=== PATIENT | male | born 1940 | race Caucasian/White ===

== ENCOUNTER 2021-10-03 20:07 | Emergency (ER) | payer MEDICAID, SELFPAY ==
--- NOTE | ~2021-10-03 | CT_ITS ---
EXAMINATION: CT HEAD WITHOUT CONTRAST CLINICAL INFORMATION: Left-sided weakness COMPARISON: None TECHNIQUE: Contiguous axial imaging was performed from the skull base to vertex without intravenous administration of contrast. This CT examination was performed using dose optimization techniques as appropriate, variously including the following: *Automated exposure control *Adjustment of mA and/or kV according to patient size (this includes techniques or standardized protocols for targeted exams where dose is matched to indication/reason for exam; i.e. extremities or head) *Use of iterative reconstruction technique DLP: 756 mGy-cm FINDINGS: Severe cortical and central atrophy. No hemorrhage. Moderate white matter changes consistent with small vessel ischemia. No acute infarct or any focal lesion noted. No hydrocephalus. No calvarial lesion. Paranasal sinuses clear. CT/CT head/brain wo con IMPRESSION: No acute intracranial pathology. No acute infarct or hemorrhage.
--- NOTE | ~2021-10-03 | XR_ITS ---
EXAMINATION: XR CHEST CLINICAL INFORMATION: Fever COMPARISON: None TECHNIQUE: Frontal view of the chest was obtained. FINDINGS: Mild streaky bibasilar opacities, likely mild subsegmental atelectasis. No definite airspace consolidation. No pleural effusion or pneumothorax. Normal cardiomediastinal silhouette and pulmonary vascularity. No evidence of pulmonary edema. No acute osseous injury. XR/XR chest 1V IMPRESSION: Streaky bibasilar opacities likely mild subsegmental atelectasis. No definite airspace consolidation or pleural effusions.
--- NOTE | 2021-10-03 20:16 | ECG_ITS ---
Test Reason : STROKE Blood Pressure : / mmHG Vent. Rate : 107 BPM Atrial Rate : 107 BPM P-R Int : 178 ms QRS Dur : 142 ms QT Int : 360 ms P-R-T Axes : 067 037 117 degrees QTc Int : 480 ms Sinus tachycardia Left bundle branch block Abnormal ECG No previous ECGs available Referred By: Preston Landry Electronically Signed By:ZULEYMA CAHUHAN
[2021-10-03 20:18] LABS: Glucose, Whole Blood 322 mg/dL (60-115)
--- NOTE | 2021-10-03 20:25 | ED.WEAKNESS ---
HPI - Weakness General Chief complaint: Stroke Stated complaint: STROKE ALERT Time Seen by Provider: 10/03/21 20:15 Source: family Mode of arrival: EMS History of Present Illness HPI Narrative: Patient 81 years old came by EMS from medical office for increased weakness since afternoon today patient does have some cold symptoms for 2 days went to the clinic and feeling very weak unable to ambulate because of weakness in both legs also complaining of slight nausea and cough on arrival patient febrile temperature of 101 degrees no other family member sick Related Data Allergies Allergy/AdvReac Type Severity Reaction Status Date / Time No Known Allergies Allergy Verified 10/03/21 20:15 Review of Systems Review of Systems: Yes all other systems are reviewed and are negative [facility] Social History Social History Advance Directives: No Advance Directives Information Provided: No Physical Exam Vital Signs: Vital Signs: Last Vital Signs Temp 98.9 F 10/03/21 23:05 Pulse 95 10/03/21 23:05 Resp 18 10/03/21 23:05 BP 152/74 H 10/03/21 23:05 Pulse Ox 98 10/03/21 23:05 O2 Del Method 10/03/21 23:05 BMI result Body Mass Index 24.3 Appearance: Alert. Oriented X3. No acute distress. Eyes: PERRLA, No Nystagmus ENT: Pharynx normal. Oral Mucosa moist Neck: Normal inspection. Neck supple. CVS: Normal heart rate and rhythm. Pulses normal. Respiratory: No respiratory distress. Equal air entry bilateral, no wheezing/rales/rhonchi Abdomen: Soft and nontender. Bowel sounds are present, no mass palpable, no CVA tenderness Skin: Skin warm and dry. Normal skin color. Normal skin turgor. Extremities: No lower extremity edema. No calf tenderness Neuro: Oriented X 3. No motor deficit. No sensory deficit.No cerebellar signs , cranial nerves II-XII intact NIH Stroke Scale Internal: Initial- Upon Arrival Level of Consciousness: Alert Level of Consciousness Questions: Answers both questions correctly Level of Consciousness Commands: Performs both tasks correctly Best Gaze: Normal Visual: No visual loss Facial Palsy: Normal Motor Arm (Right): No drift Motor Arm (Left): No drift Motor Leg (Right): No drift Motor Leg (Left): No drift Limb Ataxia: Absent Sensory: Normal Best Language: No aphasia Dysarthia: Normal Extinction and Inattention: No abnormality Score: 0 MDM - Weakness MDM Narrative Medical decision making narrative: Patient with COVID-19 infection as a cause of weakness slight Mor patient received [address] head negative no focal deficit discharge patient home patient saturating 98% at room air chest x-ray negative Lab Data Attestation: I reviewed the patient's lab results. Result diagrams: 10/03/21 21:32 10/03/21 21:31 Labs: Lab Results 10/03/21 10/03/21 10/03/21 Range/Units 20:14 21:10 21:31 WBC (4.8-10.8) X10*3/uL RBC (4.60-5.80) X10*6/uL Hgb (14.0-18.0) g/dl Hct (42.0-52.0) % MCV (80.0-98.0) fL MCH (27.0-33.0) pg MCHC (31.0-36.0) g/dl RDW (11.0-16.0) % Plt Count (160-400) X10*3/uL MPV (9.4-12.4) fL Immature Gran % (Auto) (0.0-0.4) % Neut % (Auto) (45-73) % Lymph % (Auto) (20-40) % [place] % (Auto) (2-11) % Eos % (Auto) (0-4) % Baso % (Auto) (0-2) % Lymph # (Auto) (1.2-4.9) X10*3/uL [place] # (Auto) (0.1-1.2) X10*3/uL Eos # (Auto) (0.0-0.4) X10*3/uL Baso # (Auto) (0.0-0.2) X10*3/uL Abs Immat Gran (auto) (0.00-0.03) X10*3/uL Absolute Neuts (auto) (2.0-8.3) x10*3/uL Absolute Nucleated RBC (0.0-0.012) X10*3/uL Nucleated RBC % (auto) (0.0-0.2) /100WBC PT (10.0-13.1) SEC INR (0.9-1.1) APTT (26.0-36.4) SEC Sodium 135 (135-145) mmol/L Potassium 5.1 (3.3-5.1) mmol/L Chloride 103 (96-108) mmol/L Carbon Dioxide 19 L (22-29) mmol/L Anion Gap 18 (12-20) BUN 18 H (9-16) mg/dL Creatinine 1.42 H (0.5-1.4) mg/dL Estim Creat Clear Calc 41.9 Estimated GFR 48 POC Glucose 322 H (60-115) mg/dL Random Glucose 321 H (60-115) mg/dL Lactic Acid (0.5-2.0) mmol/L Calcium 8.4 (8.4-10.2) mg/dL Total Bilirubin 0.7 (0.0-1.0) mg/dL AST 40 H (5-37) U/L ALT 41 H (0-40) U/L Alkaline Phosphatase 103 (39-117) U/L Troponin I High Sens (<3.5-35.0) ng/L Total Protein 7.7 (6.5-8.0) g/dL Albumin 4.2 (3.5-5.0) g/dL COVID-19 (AIDE) Positive A (Negative) COVID-19 Clin Com See Note 10/03/21 10/03/21 10/03/21 Range/Units 21:32 21:32 21:32 WBC 13.2 H (4.8-10.8) X10*3/uL RBC 5.04 (4.60-5.80) X10*6/uL Hgb 14.9 (14.0-18.0) g/dl Hct 42.6 (42.0-52.0) % MCV 84.5 (80.0-98.0) fL MCH 29.6 (27.0-33.0) pg MCHC 35.0 (31.0-36.0) g/dl RDW 12.8 (11.0-16.0) % Plt Count 219 (160-400) X10*3/uL MPV 9.6 (9.4-12.4) fL Immature Gran % (Auto) 0.5 H (0.0-0.4) % Neut % (Auto) 89.4 H (45-73) % Lymph % (Auto) 4.6 L (20-40) % [place] % (Auto) 5.2 (2-11) % Eos % (Auto) 0.0 (0-4) % Baso % (Auto) 0.3 (0-2) % Lymph # (Auto) 0.6 L (1.2-4.9) X10*3/uL [place] # (Auto) 0.7 (0.1-1.2) X10*3/uL Eos # (Auto) 0.0 (0.0-0.4) X10*3/uL Baso # (Auto) 0.0 (0.0-0.2) X10*3/uL Abs Immat Gran (auto) 0.06 H (0.00-0.03) X10*3/uL Absolute Neuts (auto) 11.8 H (2.0-8.3) x10*3/uL Absolute Nucleated RBC 0.000 (0.0-0.012) X10*3/uL Nucleated RBC % (auto) 0.0 (0.0-0.2) /100WBC PT 11.6 (10.0-13.1) SEC INR 1.0 (0.9-1.1) APTT 32.6 (26.0-36.4) SEC Sodium (135-145) mmol/L Potassium (3.3-5.1) mmol/L Chloride (96-108) mmol/L Carbon Dioxide (22-29) mmol/L Anion Gap (12-20) BUN (9-16) mg/dL Creatinine (0.5-1.4) mg/dL Estim Creat Clear Calc Estimated GFR POC Glucose (60-115) mg/dL Random Glucose (60-115) mg/dL Lactic Acid (0.5-2.0) mmol/L Calcium (8.4-10.2) mg/dL Total Bilirubin (0.0-1.0) mg/dL AST (5-37) U/L ALT (0-40) U/L Alkaline Phosphatase (39-117) U/L Troponin I High Sens 15.7 (<3.5-35.0) ng/L Total Protein (6.5-8.0) g/dL Albumin (3.5-5.0) g/dL COVID-19 (AIDE) (Negative) COVID-19 Clin Com 10/03/21 Range/Units 21:34 WBC (4.8-10.8) X10*3/uL RBC (4.60-5.80) X10*6/uL Hgb (14.0-18.0) g/dl Hct (42.0-52.0) % MCV (80.0-98.0) fL MCH (27.0-33.0) pg MCHC (31.0-36.0) g/dl RDW (11.0-16.0) % Plt Count (160-400) X10*3/uL MPV (9.4-12.4) fL Immature Gran % (Auto) (0.0-0.4) % Neut % (Auto) (45-73) % Lymph % (Auto) (20-40) % [place] % (Auto) (2-11) % Eos % (Auto) (0-4) % Baso % (Auto) (0-2) % Lymph # (Auto) (1.2-4.9) X10*3/uL [place] # (Auto) (0.1-1.2) X10*3/uL Eos # (Auto) (0.0-0.4) X10*3/uL Baso # (Auto) (0.0-0.2) X10*3/uL Abs Immat Gran (auto) (0.00-0.03) X10*3/uL Absolute Neuts (auto) (2.0-8.3) x10*3/uL Absolute Nucleated RBC (0.0-0.012) X10*3/uL Nucleated RBC % (auto) (0.0-0.2) /100WBC PT (10.0-13.1) SEC INR (0.9-1.1) APTT (26.0-36.4) SEC Sodium (135-145) mmol/L Potassium (3.3-5.1) mmol/L Chloride (96-108) mmol/L Carbon Dioxide (22-29) mmol/L Anion Gap (12-20) BUN (9-16) mg/dL Creatinine (0.5-1.4) mg/dL Estim Creat Clear Calc Estimated GFR POC Glucose (60-115) mg/dL Random Glucose (60-115) mg/dL Lactic Acid 2.1 H* (0.5-2.0) mmol/L Calcium (8.4-10.2) mg/dL Total Bilirubin (0.0-1.0) mg/dL AST (5-37) U/L ALT (0-40) U/L Alkaline Phosphatase (39-117) U/L Troponin I High Sens (<3.5-35.0) ng/L Total Protein (6.5-8.0) g/dL Albumin (3.5-5.0) g/dL COVID-19 (AIDE) (Negative) COVID-19 Clin Com ECG Data Attestation: I personally reviewed and interpreted this ECG as follows: Interpretation: Sinus tachycardia heart rate of 107 beats per minute left bundle branch block no acute ST wave changes no acute skin Critical Care Time Critical Care Time Critical Care Time: Yes Total Critical Care Time: 35 Attestation: I spent 35 minutes of critical care, with interventions, assessments, speaking to patient, consultants, and family. Discharge Plan Discharge Clinical Impression: COVID-19, Weakness, Acute dehydration Patient Disposition: Home, Self-Care Instructions: Weakness (ED), COVID-19 (Coronavirus Disease 2019) (ED) Additional Instructions: Drink plenty of fluids Social distancing as advised You are slightly dehydrated recheck your kidney functions in your PCP office in 2-3 days
[2021-10-03 20:33] VITALS: PULSE 106; RESP 22; O2SAT 93; BMI 24.3
[2021-10-03 21:08] VITALS: TEMP 38.8
[2021-10-03] MEDS: Acetaminophen 325 MG TABLET 650 MG PO (21:12)
[2021-10-03] MEDS: 0.9 % Sodium Chloride 1,000 ML 999 ML IV ×2 (21:13)
[2021-10-03 21:39] VITALS: BP 175/90; PULSE 105; RESP 20; TEMP 37.3
[2021-10-03 21:39] LABS: Basophils Percent Auto 0.3 % (0-2); Hematocrit 42.6 % (42.0-52.0); Hemoglobin 14.9 g/dl (14.0-18.0); Imm Gran Abs Auto 0.06 X10*3/uL (0.00-0.03); Imm Gran Pct Auto 0.5 % (0.0-0.4); Lymphocytes Absolute Auto 0.6 X10*3/uL (1.2-4.9); Lymphocytes Percent Auto 4.6 % (20-40); MANUAL DIFF FLAG NO; Mean Corpuscular Hemoglobin 29.6 pg (27.0-33.0); Mean Corpuscular Volume 84.5 fL (80.0-98.0); Mean Platelet Volume 9.6 fL (9.4-12.4); Monocytes Absolute Auto 0.7 X10*3/uL (0.1-1.2); Monocytes Percent Auto 5.2 % (2-11); Neutrophils Absolute Auto 11.8 x10*3/uL (2.0-8.3); Neutrophils Percent Auto 89.4 % (45-73); Platelet Count 219 X10*3/uL (160-400); Red Blood Count 5.04 X10*6/uL (4.60-5.80); Red Cell Distribution Width 12.8 % (11.0-16.0); White Blood Count 13.2 X10*3/uL (4.8-10.8)
[2021-10-03 21:45] LABS: Prothrombin Time 11.6 SEC (10.0-13.1)
[2021-10-03 21:47] LABS: Partial Thromboplastin Time 32.6 SEC (26.0-36.4)
[2021-10-03 21:59] LABS: Alanine Aminotransferase 41 U/L (0-40); Albumin Level 4.2 g/dL (3.5-5.0); Alkaline Phosphatase 103 U/L (39-117); Anion Gap 18 (12-20); Aspartate Amino Transferase 40 U/L (5-37); Bilirubin Total 0.7 mg/dL (0.0-1.0); Blood Urea Nitrogen 18 mg/dL (9-16); Calcium 8.4 mg/dL (8.4-10.2); Carbon Dioxide 19 mmol/L (22-29); Chloride 103 mmol/L (96-108); Creatinine Clr Calc Pharmacy 41.9; Estimated Glomerular Filt Rate 48; Glucose Random 321 mg/dL (60-115); Potassium 5.1 mmol/L (3.3-5.1); Sodium 135 mmol/L (135-145); Total Protein 7.7 g/dL (6.5-8.0)
[2021-10-03 22:03] LABS: Troponin-I High Sensitivity 15.7 ng/L (<3.5-35.0)
[2021-10-03 22:10] LABS: Lactic Acid 2.1 mmol/L (0.5-2.0)
[2021-10-03 22:11] LABS: COVID-19 Test Positive (Negative)
[2021-10-03] MEDS: ondansetron HCL 4 MG/2 ML VIAL IVPUSH (22:13)
--- NOTE | 2021-10-03 22:23 | PC.NURSE ---
Pt. DANIELA by EMS. This nurse didn't receive report from EMS as they gave info directly to doc and this comic book writer was with another patient. EMS called in pt. as a stroke alert pt. Info obtained from pt's daughter. Pt. was coughing with nausea and was febrile. Pt. experienced weakness upon standing. Pt. continues to experience nausea. Medicated with Zofran per the APR.
[2021-10-03 23:05] VITALS: BP 152/74; PULSE 95; RESP 18; TEMP 37.2; O2SAT 98
--- NOTE | 2021-10-03 23:06 | PC.NURSE ---
PATIENT WAS CHANGE INTO HOSPITAL ATTIRE .
[2021-10-03 23:43] LABS: Reflex Lactate? Lactic Acid Added
== END 2021-10-04 00:06 | disposition home or self-care (01) ==
PROVIDERS: Emergency Provider Internal Medicine
DX: U07.1 COVID-19 (principal); R00.0 Tachycardia, unspecified; E86.0 Dehydration; R53.1 Weakness; Z79.899 Other long term (current) drug therapy
CPT/HCPCS: 36415; 70450; 71045; 80053; 82947; 83605; 84484; 85025; 85610; 85730; 87040; 87635; 93005; 96374; 99284; J2405

== ENCOUNTER 2022-11-01 20:27 | Emergency (ER) | payer MEDICAID, OTHER, SELFPAY ==
--- NOTE | ~2022-11-01 | CT_ITS ---
Indication: Neck pain, status post fall, dizziness EXAMINATION: CT of the brain and CT cervical spine. Comparison previous dated 10/03/2021. Axial imaging with coronal and sagittal reformatted images. This CT examination was performed using dose optimization techniques as appropriate, variously including the following: *Automated exposure control *Adjustment of mA and/or kV according to patient size (this includes techniques or standardized protocols for targeted exams where dose is matched to indication/reason for exam; i.e. extremities or head) *Use of iterative reconstruction technique. Radiation dose [address] brain; There is no midline shift. There is no mass effect. There is no hemorrhage. The basal cisterns appear patent. The posterior fossa is grossly within normal limits. There is no extra-axial collection. Note is made of atrophy and white matter ischemic changes. No evidence for fracture on the bone windows. Cervical spine; Reversal of the normal lordosis. [place] at C6. No fracture or dislocation is seen. Note is made of a large central thyroid nodule. 3.[address]/CT cervical spine wo IV con IMPRESSION: Negative acute noncontrast CT the brain. There is atrophy and white matter ischemic change. Reversal of the normal cervical lordosis in the cervical spine could be due to position or spasm. There is degenerative change. No fracture or dislocation. Large dominant nodule in the thyroid gland. Recommend ultrasound
--- NOTE | ~2022-11-01 | XR_ITS ---
EXAMINATION: XR LUMBOSACRAL SPINE CLINICAL INFORMATION: Back pain, fall. COMPARISON: None available. TECHNIQUE: Three views of the lumbosacral spine. FINDINGS: Mild left apical curvature of the upper lumbar spine. Age indeterminate compression deformity at L1 with approximately 60% of anterior vertebral body height loss. No evidence of traumatic subluxation. Moderate multilevel spondylosis leading to various degrees of neural foraminal encroachment, more noticeable in the lower lumbar spine. SI joints are symmetric. No significant paraspinal soft tissue abnormality. XR/XR lumbar spine 2-3V IMPRESSION: 1. Age indeterminate L1 compression deformity with approximately 60% of anterior vertebral body height loss. Correlate for point tenderness. Further evaluation with MRI could be obtained if clinically deemed appropriate. 2. Moderate multilevel lumbar spondylosis.
--- NOTE | ~2022-11-01 | CT_ITS ---
Indication: Neck pain, status post fall, dizziness EXAMINATION: CT of the brain and CT cervical spine. Comparison previous dated 10/03/2021. Axial imaging with coronal and sagittal reformatted images. This CT examination was performed using dose optimization techniques as appropriate, variously including the following: *Automated exposure control *Adjustment of mA and/or kV according to patient size (this includes techniques or standardized protocols for targeted exams where dose is matched to indication/reason for exam; i.e. extremities or head) *Use of iterative reconstruction technique. Radiation dose [address] brain; There is no midline shift. There is no mass effect. There is no hemorrhage. The basal cisterns appear patent. The posterior fossa is grossly within normal limits. There is no extra-axial collection. Note is made of atrophy and white matter ischemic changes. No evidence for fracture on the bone windows. Cervical spine; Reversal of the normal lordosis. [place] at C6. No fracture or dislocation is seen. Note is made of a large central thyroid nodule. 3.[address]/CT head/brain wo IV con IMPRESSION: Negative acute noncontrast CT the brain. There is atrophy and white matter ischemic change. Reversal of the normal cervical lordosis in the cervical spine could be due to position or spasm. There is degenerative change. No fracture or dislocation. Large dominant nodule in the thyroid gland. Recommend ultrasound
[2022-11-01 20:51] VITALS: BP 162/78; PULSE 93; RESP 18; TEMP 37.1; O2SAT 95; BMI 25.1
--- NOTE | 2022-11-01 20:52 | ED_ITS ---
HPI - General Adult General Chief complaint: Fall Stated complaint: Fell hurt back Time Seen by Provider: 11/01/22 22:40 Source: patient and family Mode of arrival: ambulatory Limitations: no limitations History of Present Illness HPI narrative: earlier patient was eating sitting at a table food up all of sudden felt dizzy and fell backwards hitting his head to the ground complaining of pain in the neck no other injury No loss of consciousness patient with history of dementia no loss of consciousness no seizures patient otherwise is at baseline Related Data Allergies Allergy/AdvReac Type Severity Reaction Status Date / Time No Known Allergies Allergy Verified 11/01/22 20:56 [facility] Social History Social History Alcohol intake: former Smoked in Last 30 Days: No Use of substances other than those prescribed or required for medical reasons: No Advance Directives: No Advance Directives Information Provided: Yes Physical Exam ED Vital Signs: Vital Signs - 24 hr 11/01/22 20:51 11/01/22 23:38 11/01/22 23:39 Temperature 98.8 F Pulse Rate 93 75 81 Respiratory Rate 18 Blood Pressure 162/78 H 154/87 H 160/81 H Pulse Oximetry 95 Oxygen Delivery Method Room Air 11/01/22 23:41 11/02/22 00:04 Temperature 98.2 F Pulse Rate 82 75 Respiratory Rate 18 Blood Pressure 160/77 H 159/83 H Pulse Oximetry 93 Oxygen Delivery Method Room Air BMI result Body Mass Index 25.1 Appearance: Alert. Oriented X3. No acute distress. Eyes: PERRLA, No Nystagmus ENT: Pharynx normal. Oral Mucosa moist Neck: Normal inspection. Neck supple. CVS: Normal heart rate and rhythm. Pulses normal. Respiratory: No respiratory distress. Equal air entry bilateral, no wheezing/rales/rhonchi Abdomen: Soft and nontender. Bowel sounds are present, no mass palpable, no CVA tenderness Skin: Skin warm and dry. Normal skin color. Normal skin turgor. Extremities: No lower extremity edema. No calf tenderness Neuro: Oriented X 3. No motor deficit. No sensory deficit.No cerebellar signs , cranial nerves II-XII intact Course Course Course Narrative: This is an RME: Additional HPI, ROS, PE not included below will be deferred to primary provider. 82 y o male presenting for evaluation of lower back pain s/p ground level unwitnessed fall earlier today. Negative thinners, negative HS, negative LOC. States he was dizzy prior to the fall, fell onto his bottom. Plan: Labs, imaging Medical Decision Making Medical Decision Making [facility] Narrative: Patient s/p mechanical fall normal vitals ambulatory in the ER will discharge the patient home Lab Data [facility] Lab Attestation statement: I reviewed the patient's lab results. 11/01/22 21:25 11/01/22 21:25 Labs: Lab Results 11/01/22 Range/Units 21:25 WBC 14.0 H (4.8-10.8) X10*3/uL RBC 4.92 (4.60-5.80) X10*6/uL Hgb 14.8 (14.0-18.0) g/dl Hct 42.9 (42.0-52.0) % MCV 87.2 (80.0-98.0) fL MCH 30.1 (27.0-33.0) pg MCHC 34.5 (31.0-36.0) g/dl RDW 13.1 (11.0-16.0) % Plt Count 213 (160-400) X10*3/uL MPV 9.6 (9.4-12.4) fL Immature Gran % (Auto) 0.7 H (0.0-0.4) % Neut % (Auto) 85.8 H (45-73) % Lymph % (Auto) 9.0 L (20-40) % [place] % (Auto) 3.9 (2-11) % Eos % (Auto) 0.3 (0-4) % Baso % (Auto) 0.3 (0-2) % Lymph # (Auto) 1.3 (1.2-4.9) X10*3/uL [place] # (Auto) 0.6 (0.1-1.2) X10*3/uL Eos # (Auto) 0.0 (0.0-0.4) X10*3/uL Baso # (Auto) 0.0 (0.0-0.2) X10*3/uL Abs Immat Gran (auto) 0.10 H (0.00-0.03) X10*3/uL Absolute Neuts (auto) 12.0 H (2.0-8.3) x10*3/uL Absolute Nucleated RBC 0.000 (0.0-0.012) X10*3/uL Nucleated RBC % (auto) 0.0 (0.0-0.2) /100WBC Sodium 136 (135-145) mmol/L Potassium 4.4 (3.3-5.1) mmol/L Chloride 103 (96-108) mmol/L Carbon Dioxide 20 L (22-29) mmol/L Anion Gap 17 (12-20) BUN 14 (9-16) mg/dL Creatinine 1.07 (0.5-1.4) mg/dL Estim Creat Clear Calc 48.0 Estimated GFR > 60 Random Glucose 268 H (60-115) mg/dL Calcium 9.3 D (8.4-10.2) mg/dL Total Bilirubin 0.5 (0.0-1.0) mg/dL AST 24 (5-37) U/L ALT 27 (0-40) U/L Alkaline Phosphatase 87 (39-117) U/L Troponin I High Sens 4.2 (<3.5-35.0) ng/L Total Protein 7.9 (6.5-8.0) g/dL Albumin 4.6 (3.5-5.0) g/dL Independent Interpretation I performed an independent interpretation of an: EKG Interpretation: No sinus rhythm with heart rate of 90 beats per minute left bundle-branch block no acute ST changes no acute ischemia Discharge Plan Discharge Clinical Impression: Fall Patient Disposition: Home, Self-Care Instructions: Fall Prevention for Older Adults (ED) Additional Instructions: Care and cautions as advised
--- NOTE | 2022-11-01 20:56 | ECG_ITS ---
Test Reason : FALL Blood Pressure : / mmHG Vent. Rate : 090 BPM Atrial Rate : 090 BPM P-R Int : 180 ms QRS Dur : 144 ms QT Int : 396 ms P-R-T Axes : 037 014 125 degrees QTc Int : 484 ms Normal sinus rhythm Left bundle branch block Abnormal ECG When compared with ECG of 03-OCT-2021 20:58, No significant change was found Referred By: Todd Leon Electronically Signed By:ZULEYMA CHAUHAN
[2022-11-01 21:30] LABS: MANUAL DIFF FLAG NO
[2022-11-01 21:31] LABS: Basophils Percent Auto 0.3 % (0-2); Eosinophils Percent Auto 0.3 % (0-4); Hematocrit 42.9 % (42.0-52.0); Hemoglobin 14.8 g/dl (14.0-18.0); Imm Gran Pct Auto 0.7 % (0.0-0.4); Lymphocytes Absolute Auto 1.3 X10*3/uL (1.2-4.9); Mean Corpuscular HGB Conc 34.5 g/dl (31.0-36.0); Mean Corpuscular Hemoglobin 30.1 pg (27.0-33.0); Mean Corpuscular Volume 87.2 fL (80.0-98.0); Mean Platelet Volume 9.6 fL (9.4-12.4); Monocytes Absolute Auto 0.6 X10*3/uL (0.1-1.2); Monocytes Percent Auto 3.9 % (2-11); Neutrophils Percent Auto 85.8 % (45-73); Platelet Count 213 X10*3/uL (160-400); Red Blood Count 4.92 X10*6/uL (4.60-5.80); Red Cell Distribution Width 13.1 % (11.0-16.0)
[2022-11-01 21:44] LABS: Alanine Aminotransferase 27 U/L (0-40); Albumin Level 4.6 g/dL (3.5-5.0); Alkaline Phosphatase 87 U/L (39-117); Anion Gap 17 (12-20); Aspartate Amino Transferase 24 U/L (5-37); Bilirubin Total 0.5 mg/dL (0.0-1.0); Blood Urea Nitrogen 14 mg/dL (9-16); Calcium 9.3 mg/dL (8.4-10.2); Carbon Dioxide 20 mmol/L (22-29); Chloride 103 mmol/L (96-108); Estimated Glomerular Filt Rate > 60; Glucose Random 268 mg/dL (60-115); Potassium 4.4 mmol/L (3.3-5.1); Sodium 136 mmol/L (135-145); Total Protein 7.9 g/dL (6.5-8.0)
[2022-11-01 21:50] LABS: Troponin-I High Sensitivity 4.2 ng/L (<3.5-35.0)
[2022-11-01 23:38] VITALS: BP 154/87; PULSE 75
[2022-11-01 23:39] VITALS: BP 160/81; PULSE 81
[2022-11-01 23:41] VITALS: BP 160/77; PULSE 82
[2022-11-02 00:04] VITALS: BP 159/83; PULSE 75; RESP 18; TEMP 36.8; O2SAT 93
[2022-11-02 00:42] LABS: Appearance Urine Clear; Color Urine Yellow; Glucose Urine UA 100 mg/dL (Negative); Leukocyte Esterase Urine Negative (Negative); Nitrite Urine Negative (Negative); Urine Blood Negative (Negative); Urine Ketones Negative (Negative); Urine Protein Negative (Neg-Trace)
== END 2022-11-02 00:41 | disposition home or self-care (01) ==
PROVIDERS: Physician Assistant; Emergency Provider Internal Medicine
DX: R42 Dizziness and giddiness (principal); R51.9 Headache, unspecified; M54.2 Cervicalgia; R94.31 Abnormal electrocardiogram [ECG] [EKG]; M54.50 Low back pain, unspecified; Z79.899 Other long term (current) drug therapy
CPT/HCPCS: 36415; 70450; 72100; 72125; 80053; 81003; 84484; 85025; 93005; 99284; 99285

== ENCOUNTER 2024-01-05 09:41 | Outpatient (REF) | payer MEDICAID, OTHER, SELFPAY ==
[2024-01-05 11:37] LABS: Hematocrit 40.8 % (42.0-52.0); Hemoglobin 14.2 g/dl (14.0-18.0)
[2024-01-05 12:01] LABS: Anion Gap 13 (12-20); Blood Urea Nitrogen 11 mg/dL (9-16); Calcium 9.4 mg/dL (8.4-10.2); Carbon Dioxide 26 mmol/L (22-29); Chloride 101 mmol/L (96-108); Cholesterol 105 mg/dL (<200); Estimated Glomerular Filt Rate > 60; Glucose Random 206 mg/dL (60-115); HDL Cholesterol 30 mg/dL (>40); LDL Cholesterol Calculated 36 mg/dL (<100); Potassium 4.2 mmol/L (3.3-5.1); Sodium 136 mmol/L (135-145); Triglycerides 195 mg/dL (<150)
[2024-01-05 12:12] LABS: Creatinine Urine 69.47 mg/dL; Microalbum/Creatinine Ratio Ur 11.5 ug/mg cr (<30)
[2024-01-05 13:08] LABS: Free T4 (Free Thyroxine) 1.16 ng/dL (0.71-1.85)
== END 2024-01-05 09:42 | disposition home or self-care (01) ==
LOC: HO.HHCL 09:41
PROVIDERS: Visit Provider Nurse Practitioner Primary Care
DX: G30.9 Alzheimer's disease, unspecified (principal); F02.80 Dementia in other diseases classified elsewhere, unspecified severity, without behavioral disturbance, psychotic disturbance, mood disturbance, and anxiety; E03.8 Other specified hypothyroidism; E78.5 Hyperlipidemia, unspecified; E11.69 Type 2 diabetes mellitus with other specified complication
CPT/HCPCS: 36415; 80048; 80061; 82043; 82570; 84439; 84443; 85014; 85018

== ENCOUNTER 2024-03-15 10:57 | Outpatient (REF) | payer MEDICAID, OTHER, SELFPAY ==
--- OUTSIDE RECORDS SUMMARY | 2024-03-15 12:09 | XMS_ITS | Encounter Summary ---
Author Organization [employer] Address [address] [place] [address] Care Team Providers Care Inside Outside Sales Representative Name Role Phone Marisa Chowdhury Primary Care Provider [phone] Tamiko Licona Primary Care Provider [phone] Encounter Details Date Type Department Care Team (Late st Contact Info) Description 2022 Orders Only [facility]S [address] [place], [place] [id number] Suzy Baez LPN Social History Tobacco Use Types Packs/Day Years Used Date Smoking Tobacco: Never Assessed Sex and Gender Information Value Date Recorded Sex Assigned at Male 12/10/2021 10:40 AM EDT Legal Sex Male 10:40 AM EDT Gender Identity Male 12/10/2021 10:40 AM EDT Sexual Orientation Straight 12/10/2021 10 :40 AM EDT documented as of this encounter Plan of Treatment Upcoming Encounters Date Type Department Care Team (Late st Contact Info) Description 03/25/2024 10:00 AM EST Office Visit [facility] MEDICINE [address] [place] [address] Tamiko Licona ANP [address] [place] [address] documented as of this encounter Visit Diagnoses Not on filedocumented in this encounter Care Teams Inside Outside Sales Representative Relationship Specialty Start Date End Date Marisa Chowdhury FNP PCP - General Family Medicine 04/19/22 08/25/22 Tamiko Licona ANP [address] [place] [address] PCP - General Family Medicine 04/03/23 documented as of this encounter
--- OUTSIDE RECORDS SUMMARY | 2024-03-15 12:09 | XMS_ITS | Encounter Summary ---
Author Organization [email or web address] Address [address] [facility] 7t [place] [address] Care Team Providers Care Mine Engineering Superintendent Name Role Phone Tamiko Licona Primary Care Provider [phone] Encounter Details Date Type Department Care Team (Late st Contact Info) Description 07/03/2023 Telephone [facility] [address] [place], [place] [phone] Tamiko Licona ANP [address] [place], [place] [phone] Social History Tobacco Use Types Packs/Day Years Used Date Smoking Tobacco: Never Smokeless Tobacco: Former Chew Comments:Quit when family br ought to [place] from [facility] Alcohol Use Standard Drinks/Week Comments Not Currently 0 (1 standard drink = 0.6 oz pur e alcohol) Alcohol Answer Date Recorded Frequency of Alcohol Consumption Not on file 04/15/2023 Average Number of Drinks Not on file 024 Frequency of Binge Drinking Not on file 06/2023 Score 0 04/15/2023 Depression Answer Date Recorded Patient Health Questionnaire-9 Score 0 04/15/2023 Patient Health Questionnaire-9 Score 0 04/15/2023 Last PHQ-9: Questionnaire Data Not on file 0 04/15/2023 Housing Stability Answer Date Recorded What is your housing situation today? I have tank romano 04/07/[address] you li ve. Do you have problems with any of the following? None of the above 04/07/2023 Food Insecurity Answer Date Recorded Within the past 12 months, y ou worried that your food would run out before you got money to buy more: Never True 04/07/2023 Within the past 12 months,th e food you bought just didn't last and you didn't have enough money to get more: Never True Transportation Answer Date Recorded In the past 12 months, has l ack of transportation kept you from medical appts, meetings, work or from getting things needed for daily living? No 04/07/2023 Utilities Answer Date Recorded In the past 12 months, has t he electric, gas, oil or water company threatened to shut off services in your home? No 04/07/2023 Depression Answer Date Recorded Patient Health Questionnaire-2 Score 0 04/15/2023 Sex and Gender Information Value Date Recorded Sex Assigned at Male 12/10/2021 10:40 AM EDT Legal Sex Male 10:40 AM EDT Gender Identity Male 12/10/2021 10:40 AM EDT Sexual Orientation Straight 12/10/2021 10 :40 AM EDT documented as of this encounter Plan of Treatment Upcoming Encounters Date Type Department Care Team (Late st Contact Info) Description 03/25/2024 10:00 AM EST Office Visit [facility] [address] [place] [phone] Tamiko Licona ANP [address] [place] [address] documented as of this encounter Goals Goal Patient Goal Type Associated Problems Recent Progress Patient-Stated? Author Blood Pressure < 140/90 Blood Pressure 134/71( 024 9:33 AM EDT) No Mónica Real, PharmD documented as of this encounter Visit Diagnoses Not on filedocumented in this encounter Additional Health Concerns Assessment Noted Time PHQ-9 Depression Total Score: 0 04/15/19 10:49 AM EST documented as of this encounter Care Teams Mine Engineering Superintendent Relationship Specialty Start Date End Date Tamiko Licona ANP [address] [place] [phone] PCP - General Family Medicine 04/03/23 documented as of this encounter
--- OUTSIDE RECORDS SUMMARY | 2024-03-15 12:09 | XMS_ITS | Referral Summary ---
Author Organization [facility] Address [address] [place] [address] Care Team Providers Care Hotel Administrative Assistant Name Role Phone Tamiko Licona Primary Care Provider [phone] Encounters Date Type Department Care Team Description 01/02/2024 Refill [facility] [address] [place] [phone] Yeni Carrillo MD 12/17/2023 Orders Only [facility] [address] [place] [phone] Yeni Carrillo MD from Last 3 Months Allergies No known active allergies Medications amLODIPine (NORVASC) 5 mg tablet 5 mg. Active atorvastatin (LIPITOR) 20 mg tablet 20 mg. Active Januvia 100 mg tablet 100 mg once a day. Active metFORMIN (GLUCOPHAGE) 1,000 mg tablet 1,000 mg. Acti ve olmesartan (BENICAR) 20 mg tablet 20 mg once a day. Active omega-3 acid ethyl esters (LOVAZA) 1 gram capsule 1 g. Active Vitamin D3 25 mcg (1,000 unit) capsule 1,000 Units. Active traZODone (DESYREL) 50 mg tablet Take 1 tablet (50 mg total) by mouth at bed time. at bedtime. 90 tablet 01/05/2024 Active Active Problems No known active problems Social History Tobacco Use Types Packs/Day Years Used Date Smoking Tobacco: Former Cigarettes Q uit: 2020 Smokeless Tobacco: Never Tobacco Cessation:Counseling Given: Not Answered Alcohol Use Standard Drinks/Week Comments Never 0 (1 standard drink = 0.6 oz pur e alcohol) Sex and Gender Information Value Date Recorded Sex Assigned at Male 12/09/2023 11:45 AM EDT Legal Sex Male 2:21 PM EDT Gender Identity Not on file Sexual Orientation Not on file Last Filed Vital Signs Vital Sign Reading Time Taken Comments Blood Pressure 104/64 01/20/2023 12:58 PM EST Pulse 72 01/20/2023 12:58 PM EST Temperature 36.3 ??C (97.3 ??F) 01/20/2023 12:[address] Respiratory Rate 16 01/20/2023 12:58 PM EST Oxygen Saturation - - Inhaled Oxygen Concentration - - Weight 69 kg (152 lb 1.9 oz) 01/20/2023 12:58 PM EST Height 175.3 cm (5' 9 ) 01/20/2023 12:58 PM EST Body Mass Index 22.46 01/20/2023 12:58 PM EST Plan of Treatment Upcoming Encounters Date Type Department Care Team (Late st Contact Info) Description 11/26/2024 11:00 AM EDT Follow-Up [facility] [address] [place] [phone] Yeni Carrillo MD [address] [place] [phone] [facility] Care Teams Hotel Administrative Assistant Relationship Specialty Start Date End Date Tamiko Licona [address] [place] [phone] PCP - General 12/09/23
--- OUTSIDE RECORDS SUMMARY | 2024-03-15 12:09 | XMS_ITS | Clinical Summary ---
Author Organization [facility] Address [address] [place] [address] Care Team Providers Care Spring Bender Name Role Phone Tamiko Licona Primary Care Provider [phone] Allergies No known active allergies Medications amLODIPine [...] bed time. at bedtime. 90 tablet 01/05/2024 5 Active Active Problems No known active problems Encounters Date Type Department Care Team Description 01/02/2024 Refill [facility] [address] [place] [phone] Yeni Carrillo MD 12/17/2023 Orders Only [facility] [address] [place] [address] Yeni Carrillo MD from Last 3 Months Social History Tobacco Use Types Packs/Day Years [...] Info) Description 11/26/2024 11:00 AM EDT Follow-Up [facility] [address] [place] [address] Yeni Carrillo MD [address] [place] [phone] Health Maintenance Due Date Last Done Comments Zoster Vaccines (1 of 2) 02/22/1988 RSV Vaccine (60+ years old a nd patients) (1 - 1-dose 75+ series) 2013 COVID-19 Vaccine ( - 2023- season) 2023 Influenza Vaccine (#1) 2023 11/13/2021 Alcohol/Substance Use Screening 02/11/2024 Depression Screening and Follow-Up 02/11/2024 Health Care Proxy Review 02/11/2024 Social Drivers of Health Justina ual Screening 02/11/2024 DTaP,Tdap,and Td Vaccines (2 - Td or Tdap) 11/14/2031 11/13/2021 Pneumococcal Vaccine: 65+ Years Completed Hepatitis B Vaccines Completed 12/23/2022, 07/22/2022, 06/24/2022 Insurance [facility] HSNO/FREE CARE Care Teams Spring Bender Relationship Specialty Start Date End Date Tamiko Licona [address] [place] [phone] PCP - General 12/09/23
--- OUTSIDE RECORDS SUMMARY | 2024-03-15 12:09 | XMS_ITS | Clinical Summary ---
Author Organization [employer] Address [address] [facility] 7t [place] [address] Care Team Providers Care Bricklayer Paving Brick Name Role Phone Tamiko Licona SAVANA Primary Care Provider [phone] Allergies No known active allergies Medications Blood Glucose Monitoring Suppl (FreeStyle Mason Lite) w/Device kit USE TO TEST BLOOD SUGAR THREE TIMES DAILY 2 Active Blood Pressure Monitoring (Omron 3 Series BP Monitor) device USE TO CHECK BLOOD PRESSURE DAILY 2 Active cholecalciferol (Vitamin D-3) 25 MCG (1000 UT) capsule Take 1 capsule (25 mcg) by mouth in the morning. 90 capsule 3 4 025 Active SITagliptin (Januvia) 100 MG tabletIndications: Type 2 diabetes mellitus with hyperglycemia, without long-term current use of insulin ([facility]) Take 1 tablet (100 mg) by mouth Once per day. 90 tablet 3 4 025 Active TRUEplus Lancets 33G miscIndications:Ty pe 2 diabetes mellitus with other specified complication, without long-term current use of insulin ([facility]) TEST BLOOD SUGAR THREE TIMES DAILY 100 each 11 4 Active glucose blood (FREESTYLE LITE) test stripIndications:T ype 2 diabetes mellitus with other specified complication, without long-term current use of insulin ([facility]) TEST BLOOD SUGAR THREE TIMES DAILY 100 strip 11 4 Active polyvinyl alcohol (Liquifilm Tears) 1.4 % ophthalmic solution Administer 1 drop into both eyes if needed in the morning, at noon, and at bedtime for dry eyes. 4 Active Alcohol Swabs (Alcohol Prep) 70 % pads USE DIRECTED THREE TIMES DAILY 100 each 5 4 Active omega-3 acid ethyl esters (Lovaza) 1 g capsuleIndications :Mixed hyperlipidemia TAKE 1 CAPSULE BY MOUTH EVERY EVENING 90 capsule 1 4 Active atorvastatin (Lipitor) 20 MG tabletIndications: Mixed hyperlipidemia Take 1 tablet (20 mg) by mouth at bedtime. 90 tablet 1 4 Active traZODone (Desyrel) 50 MG tablet Take 25 mg by mouth at bedtime. 4 Active olmesartan (BENIcar) 20 MG tabletIndications: Primary hypertension TAKE 1 TABLET BY MOUTH EVERY MORNING 90 tablet 1 4 Active amLODIPine (Norvasc) 5 MG tabletIndications: Primary hypertension TAKE 1 TABLET BY MOUTH AT BEDTIME 90 tablet 1 4 Active metFORMIN (Glucophage) 1000 MG tabletIndications: Type 2 diabetes mellitus with hyperglycemia, without long-term current use of insulin (CMS/HCC) TAKE 1 TABLET BY MOUTH TWICE DAILY IN THE MORNING AND IN THE EVENING WITH FOOD 180 tablet 4 Active Active Problems Problem Noted Date Diagnosed Date Mixed hyperlipidemia 06/18/2022 Dementia 12/26/2021 Assessment & Plan (08/26/2022 9:42 PM EDT): ?? Referral to Neuro placed 06/18/22, pending (sent to [facility]) ?? Information regarding health care proxy and conservatorship discussed with pt and daughter today. Will present to court following appt for further information. Essential hypertension 12/26/2021 Type 2 diabetes mellitus 12/26/2021 Assessment & Plan (08/26/2022 9:44 PM EDT): Lab Results Component Value Date HGBA1C 12.0 (A) 06/18/2022 HGBA1C 12.2 (H) 05/14/2022 HGBA1C 10.5 (H) 11/15/2021 POC glucose 163 ?? Daughter reports significant improvement in Bg readings with adjustments in med regimen ?? Continue following regimen: ?? Metformin 1000mg BID ?? Januvia 100mg daily ?? Encouraged lifestyle interventions / carb awareness as able ?? ED precautions reviewed Resolved Problems Problem Noted Date Diagnosed Date Resolved Date COVID-19 04/15/2022 08/26/2022 Hypoxia 04/15/2022 12/09/2023 Encounters Date Type Department Care Team Description 02/05/2024 Telephone [facility] [address] [place] [address] Powell Danielledarcy ERIC March recall 01/02/2024 Telephone [facility] [address] [place] [address] Clementine Quick [place] pt reminder labs (Called pt to remind of labs ,daughter I believe name ,meghan)took the message and will let pt know.) 01/02/2024 Orders Only [facility] [address] [place], [place] [phone] Tamiko Licona ANP 01/02/2024 Refill [facility] [address] [place], [place] [phone] Tamiko Licona ANP Type 2 diabetes mellitus with hyperglycemia, without long-term current use of insulin ([facility]) 12/18/2023 Refill [facility] [address] [place], [place] [phone] Tamiko Licona ANP Primary hypertension from Last 3 Months Immunizations Name Administration Dates Next Due Hep B, adult 12/23/2022,07/22/2022,06/24/2022 Influenza High-dose Quadriva lent Preservative Free 11/13/2021 Influenza injectable quadriv alent preservative free 04/15/2023 Influenza, High Dose Seasona l, Preservative Free 12/09/2023 Pneumococcal Conjugate PCV 20 11/29/2021 Tdap 11/13/2021 Social History Tobacco Use Types Packs/Day Years Used Date Smoking Tobacco: Never Smokeless Tobacco: Former Chew Tobacco Cessation:Counseling Given: Not Answered Comments:Quit when family brought to [place] from [facility] Alcohol Use Standard Drinks/Week Comments Not Currently [...] Orientation Straight 12/10/2021 10 :40 AM EDT Last Filed Vital Signs Vital Sign Reading Time Taken Comments Blood Pressure 134/71 12/09/2023 9:33 AM EDT Pulse 71 12/09/2023 9:33 AM EDT Temperature 35.9 ??C (96.7 ??F) 12/09/2023 9:33 AM ED T Respiratory Rate 16 12/09/2023 9:33 AM EDT Oxygen Saturation 100% 12/09/2023 9:33 AM EDT Inhaled Oxygen Concentration - - Weight 70 kg (154 lb 6.4 oz) 12/09/2023 9:33 AM EDT Height 167.6 cm (5' 6 ) 12/09/2023 9:33 AM EDT Body Mass Index 24.92 12/09/2023 9:33 AM EDT Plan of Treatment Upcoming Encounters Date Type Department Care Team (Late st Contact Info) Description 03/25/2024 10:00 AM EST Office Visit [facility] [address] [place] [address] Tamiko Licona ANP [address] [place] [address] Health Maintenance Due Date Last Done Comments Zoster Vaccines (1 of 2) 02/22/1988 RSV Patients and Patients Aged 60 years or older (1 - 1-dose 75+ series) 2013 COVID-19 Vaccine ( - 2023- season) 2023 Diabetes: Hemoglobin A1C 03/10/2024 024, 07/21/2023, 04/15/2023, Additional history exists SDOH Screening 04/07/2024 04/07/2023 Alcohol/Substance Use Screening 04/14/2024 04/15/2023 Depression Screening 04/14/2024 04/15/2023, 04/15/19 24 Diabetes: Foot Exam 12/08/2024 12/09/2023, 12/09/2023, 12/09/2023, Additional history exists Tobacco Screening 12/08/2024 12/09/2023 Diabetes: Urine Protein Screening 01/04/2025 01/05/2024, 11/15/2021 Lipid Panel 01/04/2025 01/05/2024, 11/11, 11/15/2021 Eye Exam 11/19/2025 11/20/2023, 11/10, 11/20/2023, Additional history exists DTaP/Tdap/Td Vaccines (2 - Td or Tdap) 11/14/2031 11/13/2021 Pneumococcal Vaccine: 50+ Years Completed 11/29/2021 Hepatitis B Vaccines Completed 12/23/2022, 07/22/2022, 06/24/2022 Influenza Vaccine Completed 12/09/2023, , 11/13/2021 HIB Vaccines Aged Out No longer eligi ble based on patient's age to complete this topic HPV Vaccines Aged Out No longer eligi ble based on patient's age to complete this topic Hepatitis A Vaccines Aged Out No long er eligible based on patient's age to complete this topic IPV Vaccines Aged Out No longer eligi ble based on patient's age to complete this topic Meningococcal Vaccine Aged Out No kassie mode eligible based on patient's age to complete this topic RSV under 20 months Aged Out No longe r eligible based on patient's age to complete this topic Rotavirus Vaccines Aged Out No longer eligible based on patient's age to complete this topic Goals Goal Patient Goal Type Associated Problems Recent Progress Patient-Stated? Author Blood Pressure < 140/90 Blood Pressure 134/71( 024 9:33 AM EDT) Mónica Barraza PharmD Procedures Procedure Name Priority Date/Time Associated Diagnosis Comments T4, FREE Routine 01/05/2024 9:45 AM EST TSH W/REFLEX TO FT4 Routine 01/05/2024 9 :45 AM EST Subclinical hypothyroidism HEMOGLOBIN + HEMATOCRIT Routine 01/05/2024 9:45 AM EST Alzheimer's dementia without behavioral disturbance, psychotic disturbance, mood disturbance, or anxiety, unspecified dementia severity, unspecified timing of dementia onset (CMS/HCC) BASIC METABOLIC PANEL Routine 01/05/2024 9:45 AM EST Type 2 diabetes mellitus with hyperlipidemia (CMS/HCC) (CMS/HCC) ALBUMIN, RANDOM URINE W/CREATININE Routine 01/05/2024 9:45 AM EST Type 2 diabetes mellitus with hyperlipidemia (CMS/HCC) (CMS/HCC) LIPID PANEL, STANDARD Routine 01/05/2024 9:45 AM EST Type 2 diabetes mellitus with hyperlipidemia (CMS/HCC) (CMS/HCC) POCT GLYCATED HEMOGLOBIN, TOTAL Routine 12/09/2023 10:01 AM EDT Type 2 diabetes mellitus with hyperlipidemia (CMS/HCC) (CMS/HCC) from Last 3 Months or Most Recently Relevant to Health Maintenance Results * (ABNORMAL) TSH W/Reflex to FT4 (01/05/2024 9:45 AM EST) TSH reflex Free T4 0.30(L) 0.32 - 4.0 uIU/mL [facility] Blood Venous blood specimen / Unknown 01/05/2024 9:45 AM EST 01/05/2024 11:17 AM EST us Tamiko Licona ANP LAB BLOOD ORDERABLES Final Resul t Performing Organization Address [facility] Co de Phone Number [facility] [address] [place] [phone] * Albumin, Random Urine W/Creatinine (01/05/2024 9:45 AM EST) Creatinine, Urine 69.47 mg/dL [facility] Microalbumin Urine 8.0 mg/L [facility] Microalbum Creatinine Ratio Ur 11.5 <30 ug/mg cr [facility] Comment:Albumin/Creatinine R atio Reference Ranges: Normal: < 30 ug/mg creatinine Microalbuminuria: 30 - 300 ug/mg creatinineClinical Albuminuria: > 300 ug/mg creatinine Urine 01/05/2024 9:45 AM EST 01/05/2024 10:55 AM EST us Tamiko Licona ANP LAB URINE ORDERABLES Final Resul t Performing Organization Address [facility] de Phone Number [facility] [address] [place] [phone] * (ABNORMAL) Hemoglobin and Hematocrit (01/05/2024 9:45 AM EST) Hemoglobin 14.2 14.0 - 18.0 g/dl [facility] Hematocrit 40.8(L) 42.0 - 52.0 % [facility] Blood Venous blood specimen / Unknown 01/05/2024 9:45 AM EST 01/05/2024 11:12 AM EST us Tamiko Licona ANP LAB BLOOD ORDERABLES Final Resul t Performing Organization Address [facility] Co de Phone Number [facility] [address] [place] [phone] * T4, Free (01/05/2024 9:45 AM EST) Free T4 (Free Thyroxine) 1.16 0.71 - 1.85 ng/dL [facility] 01/05/2024 9:45 AM EST 01/05/2024 11:17 AM EST Tamiko Licona ANP LAB BLOOD ORDERABLES Final Resul t Performing Organization Address [facility] de Phone Number [facility] [address] [place] [phone] * (ABNORMAL) Lipid Panel, Standard (01/05/2024 9:45 AM EST) Triglycerides 195(H) <150 mg/dL [facility] Comment:Desirable Triglyceri de: less than 150 mg/dLBorderline High Triglyceride 150-199 mg/dLHigh Triglyceride: 200-499 mg/dLVery High Triglyceride: greater than or equal to 5OO mg/dL Cholesterol 105 <200 mg/dL [facility] Comment:Desirable Cholestero l: less than 200 mg/dLBorderline High Cholesterol: 200-239 mg/dLHigh Cholesterol: greater than 239 mg/dL LDL Cholesterol Calculated 36 <100 mg/dL [facility] Comment:Desirable LDL: less than 100 mg/dLNear Optimal/Above Optimal LDL: 110- 129 mg/dLBorderline High LDL: 130-159 mg/dLHigh LDL: 160-189 mg/dLVery High LDL: greater than or equal to 190 mg/dL HDL Cholesterol 30(L) >40 mg/dL [facility] Comment:Desirable HDL: great er than 40 mg/dL Note: This HDL assay may give artificially low results in patients with liver disease. Blood Venous blood specimen / Unknown 01/05/2024 9:45 AM EST 01/05/2024 11:17 AM EST Tamiko Licona ANP LAB BLOOD ORDERABLES Final Resul t Performing Organization Address City/[facility]/ZIP Co de Phone Number [facility] [address] [place] [phone] [phone] * (ABNORMAL) Basic Metabolic Panel (01/05/2024 9:45 AM EST) Pathologist [facility] Sodium 136 135 - 145 mmol/L [facility] Potassium 4.2 3.3 - 5.1 mmol/L [facility] Chloride 101 96 - 108 mmol/L [facility] Carbon Dioxide 26 22 - 29 mmol/L [facility] Anion Gap 13 12 - 20 [facility] Urea Nitrogen (BUN) 11 9 - 16 mg/dL [facility] Creatinine, Serum 0.99 0.5 - 1.4 mg/dL [facility] Estimated Glomerular Filt Rate >60 [facility] Comment:Chronic Kidney Disea se: Estimated GFR < 60 mL/min/[id number] Kidney Disease: Estimated GFR < 15 mL/min/1.73m2 Glucose 206(H) 60 - 115 mg/dL [facility] Calcium 9.4 8.4 - 10.2 mg/dL [facility] Blood Venous blood specimen / Unknown 01/05/2024 9:45 AM EST 01/05/2024 11:17 AM EST us Tamiko Licona ANP LAB BLOOD ORDERABLES Final Resul t [facility] [address] [place] [phone] * (ABNORMAL) POCT HGB A1C (12/09/2023 10:01 AM EDT) Hemoglobin A1C 7.6(A) 4.0 - 6.0 % QC Media Lot # [id number] Lot# Expiration Date [id number] Blood 12/09/2023 10:0 1 AM EDT us Tamiko Licona ANP POINT OF CARE TEST ENTER/EDIT OR DERABLES Final Result from Last 3 Months or Most Recently Relevant to Health Maintenance [place] [address] [address] LIMITED HSN FULL Advance Directives Documents on File Type Date Recorded Patient Inflatable Buildings Laminator Expl anation Advance Directives and Living Will 12/09/2023 Health Care Proxy 12/09/23 Care Teams Bricklayer Paving Brick Relationship Specialty Start Date End Date Tamiko Licona ANP [address] [place] [phone] PCP - General Family Medicine 04/03/23
--- OUTSIDE RECORDS SUMMARY | 2024-03-15 12:10 | XMS_ITS | Encounter Summary ---
Author Organization [employer] Address [address] [facility] 7t [place] [address] Care Team Providers Care Fixture Designer Name Role Phone Tamiko Licona Primary Care Provider [phone] Encounter Details Date Type Department Care Team (Late st Contact Info) Description 01/02/2024 Orders Only [facility] [address] [place], [place] [phone] Tamiko Licona ANP [address] [place], [place] [phone] Social History Tobacco Use Types Packs/Day Years Used Date Smoking Tobacco: Never Smokeless Tobacco: Former Chew Comments:Quit when family br ought to [place] from [facility] Alcohol Use Standard Drinks/Week Comments Not Currently [...] Description 03/25/2024 10:00 AM EST Office Visit [facility] [address] [place] [address] Tamiko Licona ANP [address] [place] [address] documented as of this encounter Goals Goal Patient Goal Type Associated Problems Recent Progress Patient-Stated? Author Blood Pressure < 140/90 Blood Pressure 134/71( 024 9:33 AM EDT) No Mónica Real, PharmD documented as of this encounter Procedures Procedure Name Priority Date/Time Associated Diagnosis Comments T4, FREE Routine 01/05/2024 9:45 AM EST documented in this encounter Results * T4, Free (01/05/2024 9:45 AM EST) Free T4 (Free Thyroxine) 1.16 0.71 - 1.85 ng/dL [facility] 01/05/2024 9:45 AM EST 01/05/2024 11:17 AM EST Tamiko Licona ANP LAB BLOOD ORDERABLES Final Resul t [facility] [address] [place] [phone] documented in this encounter Visit Diagnoses Not on filedocumented in this encounter Additional Health Concerns Assessment Noted Time PHQ-9 Depression Total Score: 0 04/15/19 10:49 AM EST documented as of this encounter Care Teams Fixture Designer Relationship Specialty Start Date End Date Tamiko Licona ANP [address] [place] [address] PCP - General Family Medicine 04/03/23 documented as of this encounter
[2024-03-18 00:49] LABS: TS Negative Control Passed; TS Panel A 0; TS Panel B 0; TS Positive Control Passed; TSpotTB Negative (Negative)
== END 2024-03-15 10:58 | disposition home or self-care (01) ==
LOC: HO.HHCL 10:57
PROVIDERS: Visit Provider Internal Medicine
DX: Z11.9 Encounter for screening for infectious and parasitic diseases, unspecified (principal)
CPT/HCPCS: 36415; 86481